=== PATIENT | male | born 1965 | race African-American/Black ===

== ENCOUNTER 2017-06-19 11:58 | Emergency (ER) | payer BC, OTHER ==
--- NOTE | 2017-06-19 12:41 | RAD ---
LEFT FOREARM TWO VIEWS: History: Left arm injury. FINDINGS: Radius and ulna are intact. No acute fracture or dislocation are apparent. IMPRESSION: No acute osseous abnormalities are demonstrated. POS: [facility]
== END 2017-06-19 13:37 | disposition home or self-care (01) ==
LOC: ERS 11:58
DX: S50.12XA Contusion of left forearm, initial encounter (principal); M10.9 Gout, unspecified; E11.9 Type 2 diabetes mellitus without complications; I10 Essential (primary) hypertension; W22.01XA Walked into wall, initial encounter; Y92.219 Unspecified school as the place of occurrence of the external cause; Y99.0 Civilian activity done for income or pay

== ENCOUNTER 2019-01-19 11:11 | Outpatient (CLI) | payer OTHER ==
--- NOTE | 2019-01-19 11:25 | RAD ---
XR Chest Pa Lat STANDARD HISTORY: Cough COMPARISON: 10/20/2002 FINDINGS: The heart size is normal. The lungs are well expanded without focal areas of consolidation, pneumothorax or pleural effusions. IMPRESSION: No radiographic evidence of acute cardiopulmonary process.
== END 2019-01-19 11:12 | disposition home or self-care (01) ==
LOC: RAD-FRANK 11:11
PROVIDERS: ATTEND Internal Medicine
DX: J40 Bronchitis, not specified as acute or chronic (principal)
CPT/HCPCS: 71046